=== PATIENT | female | born 1970 | race Caucasian/White ===

== ENCOUNTER → 2016-12-14 | Outpatient (CLI) | payer OTHER ==
--- NOTE | 2016-12-15 14:52 | MAMMOGRAPHY REPORT ---
BILATERAL DIGITAL SCREENING MAMMOGRAM TOMOSYNTHESIS WITH CAD: 12/14/2016 CLINICAL HISTORY: Routine screening. Patient has no complaints. TECHNIQUE: Breast tomosynthesis in addition to standard 2D mammography was performed. Current study was also evaluated with a Computer Aided Detection (CAD) system. COMPARISON: Comparison is made to exams dated: 11/12/2015 mammogram, 10/08/2014 mammogram, 08/16/2013 mammogram, 10/16/2014 ultrasound, and 10/16/2014 mammogram - [facility]. BREAST COMPOSITION: The tissue of both breasts is almost entirely fatty. FINDINGS: There are scattered punctate benign-appearing microcalcifications, and stable asymmetry i n the anterior subareolar right breast. No suspicious mass, architectural distortion or cluster of microcalcifications is seen. IMPRESSION: ACR BI-RADS CATEGORY 1: NEGATIVE There is no mammographic evidence of malignancy. A 1 year screening mammogram is recommended. The p atient will receive written notification of the results. Approximately 10% of breast cancers are not detected with mammography. A negative mammographic repor t should not delay biopsy if a clinically suggestive mass is present. Nuzhat Belcher M.D. ay/:12/14/2016 18:28:41 Lens Blank Gauger: Lacy Sellers, [facility] letter sent: Normal 1/2 BI-RADS Code: ACR BI-RADS Category 1: Negative
== END | disposition home or self-care (01) ==
LOC: C.MAMM 12:06
PROVIDERS: ATTEND Obstetrics & Gynecology
DX: Z12.31 Encounter for screening mammogram for malignant neoplasm of breast (principal)

== ENCOUNTER → 2017-04-01 | Outpatient (CLI) | payer OTHER | END | disposition home or self-care (01) | LOC: C.PAPS 14:00 | PROVIDERS: ATTEND Obstetrics & Gynecology | DX: N87.1 Moderate cervical dysplasia (principal) ==

== ENCOUNTER 2024-07-03 14:57 | Inpatient (IN) ==
[2024-07-03] MEDS: SODIUM CHLORIDE 0.9% 1,000 ML IV SCH (15:07)
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
--- NOTE | 2024-07-03 15:25 | XRay Report ---
XR chest 1V portable HISTORY: 54 years-old Female Chest pain, nonspecific COMPARISON: 09/27/2019 TECHNIQUE: AP view of the chest FINDINGS: Cardiac mediastinal and hilar silhouettes appear normal. No pneumothorax, pleural effusion or airspac e consolidation. The bones appear grossly intact. IMPRESSION: No acute process. ACT 112: Negative or not required by law. The above report was generated using voice recognition software. It may contain grammatical, syntax o r spelling errors. Electronically signed by: Shamar Jeong M.D. 07/03/2024 3:24 PM
[2024-07-03 15:43] LABS: Alanine Aminotransferase 15 U/L (7-52); Albumin Globulin Ratio 1.4 (0.9-2); Albumin Level 4.4 gm/dl (3.4-5.0); Alkaline Phosphatase 71 U/L (34-104); Anion Gap 9 (3-11); Bilirubin,Total 0.6 mg/dl (0.2-1.0); Blood Urea Nitrogen 17 mg/dl (6-23); Calcium 9.2 mg/dl (8.6-10.3); Carbon Dioxide 23 mmol/L (21-32); Chloride 105 mmol/L (98-107); Creatinine Clr Calc Pharmacy 77.8 ml/min; Globulin 3.1 gm/dl (2.5-4.0); Glucose 141 mg/dl (70-99(Fasting)); Lipase 16 U/L (11-82); Sodium 137 mmol/L (136-145); Total Protein 7.5 gm/dl (6.0-8.3); Troponin I High Sensitivity 12.2 pg/ml (0-14)
[2024-07-03] MEDS: ADENOSINE IV SOLN 3 MG/ML 2 ML VIAL IV STA (15:49)
[2024-07-03 16:30] LABS: Basophils # (auto) 0.08 K/uL (0.00-0.20); Basophils % (auto) 0.8 %; Eosinophils # (auto) 0.17 K/uL (0.00-0.50); Eosinophils % (auto) 1.8 %; Hematocrit (blood only) 42.4 % (37.0-47.0); Immature Granulocytes # (auto) 0.02 K/uL (0.01-0.20); Immature Granulocytes % (auto) 0.2 %; Lymphocytes # (auto) 2.57 K/uL (1.20-3.40); Lymphocytes % (auto) 27.1 %; Mean Corpuscular Hemoglobin 30.4 pg (25.0-34.0); Mean Corpuscular Volume 92.2 fL (80.0-100.0); Mean Platelet Volume 11.3 fL (9.4-12.4); Monocytes # (auto) 0.63 K/uL (0.11-0.59); Monocytes % (auto) 6.6 %; Neutrophils # (auto) 6.03 K/uL (1.40-6.50); Neutrophils % (auto) 63.5 %; Platelet Count 267 K/uL (130-400); RDW Coefficient of Variation 12.5 % (11.5-14.5); RDW Standard Deviation 42.6 fL (36.4-46.3)
[2024-07-03 16:41] LABS: Potassium 3.5 mmol/L (3.5-5.1)
[2024-07-03] MEDS ORDERED: ACETAMINOPHEN 325 MG TAB PO PRN (18:32)
[2024-07-03] MEDS ORDERED: ONDANSETRON INJ 2 MG/ML 2 ML VIAL IV PRN (18:32)
[2024-07-03] MEDS ORDERED: POLYETHYLENE (MIRALAX) 17 GM PACK PO PRN (18:32)
[2024-07-03] MEDS ORDERED: ALUMINUM/MAGNESIUM SUSP 30 ML UDC PO PRN (18:32)
[2024-07-03] MEDS ORDERED: MAGNESIUM HYDROXIDE SUSP 30 ML UDC PO PRN (18:32)
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
[2024-07-03 20:41] LABS: Magnesium 2.1 mg/dl (1.7-2.4)
[2024-07-03 20:57] LABS: Thyroid Stimulating Hormone 1.63 uIu/ml (0.300-4.500)
[2024-07-03] MEDS: ENOXAPARIN INJ 40 MG/0.4 ML SYR SQ SCH (21:29)
[2024-07-03] MEDS ORDERED: RIZATRIPTAN BENZOATE 10 MG TAB PO PRN (22:43)
[2024-07-04 07:44] LABS: Basophils # (auto) 0.05 K/uL (0.00-0.20); Basophils % (auto) 0.5 %; Eosinophils # (auto) 0.48 K/uL (0.00-0.50); Eosinophils % (auto) 4.9 %; Hematocrit (blood only) 38.8 % (37.0-47.0); Immature Granulocytes # (auto) 0.02 K/uL (0.01-0.20); Immature Granulocytes % (auto) 0.2 %; Lymphocytes # (auto) 3.44 K/uL (1.20-3.40); Lymphocytes % (auto) 34.9 %; Mean Corpuscular Hgb Conc 33.5 g/dL (32.0-36.0); Mean Corpuscular Volume 89.4 fL (80.0-100.0); Mean Platelet Volume 11.4 fL (9.4-12.4); Monocytes # (auto) 0.68 K/uL (0.11-0.59); Monocytes % (auto) 6.9 %; Neutrophils # (auto) 5.18 K/uL (1.40-6.50); Neutrophils % (auto) 52.6 %; Platelet Count 256 K/uL (130-400); RDW Coefficient of Variation 12.6 % (11.5-14.5); RDW Standard Deviation 41.5 fL (36.4-46.3); Red Blood Count 4.34 M/uL (4.20-5.40); White Blood Count 9.85 K/ul (4.8-10.8)
[2024-07-04 08:00] LABS: Albumin Globulin Ratio 1.3 (0.9-2); Albumin Level 3.5 gm/dl (3.4-5.0); BUN Creatinine Ratio 16.7 (10-20); Bilirubin,Total 0.7 mg/dl (0.2-1.0); Calcium 8.3 mg/dl (8.6-10.3); Creatinine Clr Calc Pharmacy 86.2 ml/min; Globulin 2.8 gm/dl (2.5-4.0); Magnesium 2.1 mg/dl (1.7-2.4); Potassium 3.8 mmol/L (3.5-5.1); Total Protein 6.3 gm/dl (6.0-8.3)
[2024-07-04 08:14] VITALS: RESP 16; O2SAT 96
[2024-07-04] MEDS: CETIRIZINE HCL 10 MG TABLET PO SCH (08:35)
--- NOTE | 2024-07-04 09:32 | Electrocardiogram Report ---
Test Reason : Blood Pressure : */* mmHG Vent. Rate : 145 BPM Atrial Rate : * BPM P-R Int : * ms QRS Dur : 124 ms QT Int : 322 ms P-R-T Axes : * -58 92 degrees QTcB Int : 500 ms Wide QRS tachycardia with occasional Premature ventricular complexes Left axis deviation Left bundle branch block Abnormal ECG No previous ECGs available Confirmed by Tyler Solis ([id number]) on 07/04/2024 9:32:33 AM Referred By: Confirmed By: Tyler Solis
--- NOTE | 2024-07-04 09:42 | Electrocardiogram Report ---
Test Reason : Blood Pressure : */* mmHG Vent. Rate : 103 BPM Atrial Rate : 103 BPM P-R Int : 150 ms QRS Dur : 122 ms QT Int : 358 ms P-R-T Axes : 65 -53 100 degrees QTcB Int : 468 ms Sinus tachycardia Possible Left atrial enlargement Left axis deviation Left bundle branch block Abnormal ECG When compared with ECG of 03-Jul-2024 15:01, (unconfirmed) Sinus rhythm has replaced Wide QRS tachycardia Confirmed by Tyler Solis ([id number]) on 07/04/2024 9:41:37 AM Referred By: Confirmed By: Tyler Solis
[2024-07-04 10:56] LABS: Troponin I High Sensitivity 48.6 pg/ml (0-14)
--- NOTE | 2024-07-04 12:10 | XCELERA ---
[id number] \\[id number]
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
--- NOTE | 2024-07-04 14:44 | Billing Data ---
Date of Service July 03, 2024 Coding Level of Care Code 55581 INT INP/OBS CARE
[2024-07-04] MEDS: METOPROLOL TARTRATE 25 MG TAB PO SCH (15:44)
[2024-07-04 15:55] VITALS: BP 146/91; TEMP 98.6
[2024-07-04 15:57] VITALS: PULSE 94
--- NOTE | 2024-07-05 14:59 | Electrocardiogram Report ---
Test Reason : Blood Pressure : */* mmHG Vent. Rate : 95 BPM Atrial Rate : 95 BPM P-R Int : 154 ms QRS Dur : 124 ms QT Int : 396 ms P-R-T Axes : 51 -45 99 degrees QTcB Int : 497 ms Normal sinus rhythm Left axis deviation Left bundle branch block Abnormal ECG When compared with ECG of 03-Jul-2024 15:50, Left bundle branch block is now Present Minimal criteria for Septal infarct are no longer Present Confirmed by Tyler Solis ([id number]) on 07/05/2024 2:59:13 PM Referred By: Sushma Billings Confirmed By: Tyler Solis
== END 2024-07-04 17:30 | disposition home or self-care (01) | DRG 309 ==
LOC: ED 14:57 → SUATTDRO 18:57 → EDINP 18:57 → 4W 22:43